=== PATIENT | female | born 1950 | race Caucasian/White ===

== ENCOUNTER → 2020-02-15 | Outpatient (CLI) | payer MEDICARE | END | disposition home or self-care (01) | LOC: RAD 14:19 | PROVIDERS: ATTEND Physician Assistant Surgical | DX: M41.85 Other forms of scoliosis, thoracolumbar region (principal); Z98.1 Arthrodesis status | CPT/HCPCS: 72082 ==

== ENCOUNTER → 2020-04-13 | Outpatient (CLI) | payer MEDICARE, OTHER | END | disposition home or self-care (01) | LOC: RAD 14:15 | PROVIDERS: ATTEND Family Medicine | DX: M41.85 Other forms of scoliosis, thoracolumbar region (principal); Z98.1 Arthrodesis status | CPT/HCPCS: 72082 ==